=== PATIENT | female | born 1935 | race Caucasian/White ===

== ENCOUNTER 2020-12-11 16:42 | Emergency (ER) | payer OTHER, MEDICAID ==
[~2020-12-11] VITALS: Ht 152.4 cm; Wt 63.6 kg
[2020-12-11] MEDS ORDERED: TRAZ-252 PO (17:49)
[2020-12-11] MEDS ORDERED: MIRT30TA6 PO (17:49)
[2020-12-11] MEDS ORDERED: METO100T14 PO (17:49)
[2020-12-11] MEDS ORDERED: LISI1TAB29 PO (17:49)
[2020-12-11] MEDS ORDERED: LEVO75TA10 PO (17:49)
[2020-12-11] MEDS ORDERED: OMEP20CA12 PO (17:49)
[2020-12-11 18:08] LABS: GLUCOSE,POINT OF CARE 160 MG/DL (70-110)
[2020-12-11 19:12] VITALS: BP 148/84
== END 2020-12-11 19:13 | disposition home or self-care (01) ==
LOC: EMS 16:42
DX: F32.9 Major depressive disorder, single episode, unspecified (principal); I10 Essential (primary) hypertension; E03.9 Hypothyroidism, unspecified
CPT/HCPCS: 82962; 99285